=== PATIENT | male | born 1950 | race Caucasian/White ===

== ENCOUNTER 2018-07-28 21:12 | Emergency (ER) | payer OTHER ==
[2018-07-28 22:15] LABS: CHLORIDE,CL 104 mEq/L (98-106); SODIUM,NA 140 mEq/L (136-145)
--- NOTE | 2018-07-28 22:48 | EDM.PDOC ---
ED HPI GENERAL MEDICAL PROBLEM - General Chief Complaint: General Stated Complaint: elevated blood pressure; anxiety Time Seen by Provider: 07/28/18 21:55 Source of Information: Reports: Patient History Limitations: Reports: No Limitations - History of Present Illness INITIAL COMMENTS - FREE TEXT/NARRATIVE: Richar is a 67 yo male who presents to the ED this evening with concerns of chest discomfort. He admits the discomfort has subsided now. At onset of the chest discomfort he had been sitting in his chair. States since he got up and moved around it seemed to help. States he was in the and after taking a lot of CPR classes he felt if it is his heart he better have it checked out. He has been having a lot of chronic problems and doctoring with the [facility] in regards to agent orange. He states for the last week or so he had quit taking his blood pressure medication d/t feeling dizzy. He admits to dizziness off and on over the years but hasn't had it in quite some time. He was reading the common side effects to the Losartan and read that it could cause dizziness so stopped taking it on Friday. He admits the dizziness had subsided. He states he is really sensitive to medications and had to stop Lisinopril a few years ago and then was started on the Losartan. Denies any radiating pain into his arm or neck. States he has had extensive cardiac work up in the past and the welding machine operator ultrasonic at the [facility] has done two Cardiolite stress tests on him and everything has always came back negative. He is a known diabetic and admits he has been working hard to keeping his numbers under control. He states his A1c has been around the high 6 range. Treatments DATABASE SPECIALIST: Reports: Aspirin Chest Pain Score (Numeric/FACES): 2 - Related Data Allergies Allergy/AdvReac Type Severity Reaction Status Date / Time lisinopril Allergy Swelling Verified 07/28/18 21:36 creosote Allergy Swelling Uncoded 07/28/18 21:36 Home Meds: Home Meds Cholecalciferol (Vitamin D3) [Vitamin D3] 1,000 unit PO DAILY 07/28/18 [History] Furosemide [Lasix] 20 mg PO DAILY 07/28/18 [History] Losartan [Cozaar] 75 mg PO DAILY 07/28/18 [History] Magnesium Oxide [Magnesium] 400 mg PO DAILY 07/28/18 [History] Phentermine/Topiramate [Qsymia 7.5 mg-46 mg Capsule] 1 each PO DAILY 07/28/18 [ History] metFORMIN HCl [Metformin HCl] 1,000 mg PO DAILY 07/28/18 [History] Past Medical History HEENT History: Reports: Allergic Rhinitis. Denies: Cataract, Glaucoma, Macular Degeneration, Retinal Detachment Cardiovascular History: Reports: Hypertension. Denies: Afib, Aneurysm, Arrhythmia, Automatic Implantable Cardioverter Defibrillators, Blood Clots/VTE/ DVT, CAD, Cardiomyopathy, Congenital Septal Defect, Heart Failure, Heart Murmur , Heart Valve Replacement, High Cholesterol, NC, Pulmonary Hypertension, SOB on Exertion Respiratory History: Denies: Asthma, COPD, Interstitial Lung Disease, Intubation , Difficult, Pneumonia, Recurrent, Pulmonary Fibrosis, SOB Gastrointestinal History: Reports: Hemorrhoids. Denies: Bowel Obstruction, Diverticulosis, GI Bleed, Pancreatitis Genitourinary History: Reports: None Neurological History: Reports: None Psychiatric History: Reports: None Oncologic (Cancer) History: Reports: Basal Cell Carcinoma - Infectious Disease History Infectious Disease History: Reports: None - Past Surgical History HEENT Surgical History: Reports: Tonsillectomy Cardiovascular Surgical History: Reports: None Respiratory Surgical History: Reports: None GI Surgical History: Reports: Appendectomy, Cholecystectomy, Hernia Repair/Other Male Surgical History: Reports: None Musculoskeletal Surgical History: Reports: Knee Replacement (bilateral) Dermatological Surgical History: Reports: Skin Biopsy, Other (See Below) (basal cell carcinoma removed X 4) Social & Family History - Family History Oncologic: Reports: Breast, Leukemia, Pancreatic, Skin. Denies: Bladder, Bone, Brain, Colon, Prostate, Thyroid - Tobacco Use Smoking Status *Q: Former Smoker Tobacco Use Within Last Twelve Months: No - Alcohol Use Alcohol Use History: No Alcohol Use in Last Twelve Months: No - Recreational Drug Use Recreational Drug Use: No Drug Use in Last 12 Months: No - Living Situation & Occupation Living situation: Reports: , with Significant Other ED ROS GENERAL - Review of Systems Review Of Systems: See Below Constitutional: Denies: Fever, Chills, Weakness, Diaphoresis, Decreased Appetite HEENT: Denies: Sinus Problem, Vision Change Respiratory: Denies: Shortness of Breath Cardiovascular: Reports: Chest Pain, Edema, Lightheadedness. Denies: Palpitations GI/Abdominal: Reports: Nausea. Denies: Abdominal Pain, Bloody Stool, Constipation, Diarrhea, Vomiting Musculoskeletal: Denies: Neck Pain, Shoulder Pain, Arm Pain Neurological: Denies: Confusion, Numbness, Difficulty Walking, Weakness Psychiatric: Reports: No Symptoms ED EXAM, GENERAL - Physical Exam Exam: See Below Exam Limited By: No Limitations General Appearance: Alert, No Apparent Distress Eye Exam: Bilateral Eye: Normal Inspection Ears: Normal External Exam, Normal Canal, Hearing Grossly Normal, Normal TMs Nose: Normal Inspection, Normal Mucosa, No Blood Throat/Mouth: Normal Inspection, Normal Lips, Normal Teeth, Normal Gums, Normal Oropharynx, Normal Voice, No Airway Compromise Head: Atraumatic, Normocephalic Neck: Normal Inspection, Supple Respiratory/Chest: No Respiratory Distress, Lungs Clear, Normal Breath Sounds, No Accessory Muscle Use Cardiovascular: Regular Rate, Rhythm, No Murmur Peripheral Pulses: 3+: Posterior Tibial (L), Posterior Tibial (R), Dorsalis Pedis (L), Dorsalis Pedis (R) GI/Abdominal: Normal Bowel Sounds, Soft, Non-Tender, No Organomegaly, No Distention Extremities: Pedal Edema Neurological: Alert, Oriented, Normal Cognition, Normal Gait, No Motor/Sensory Deficits Psychiatric: Normal Affect, Normal Mood Skin Exam: Warm, Dry, Intact, Normal Color, No Rash EKG INTERPRETATION EKG Date: 07/28/18 Rhythm: NSR Rate (Beats/Min): 91 [place]: LAD-Left [place] Deviation QRS: Normal ST-T: Normal Comparison: NA - No Prior EKG Course - Vital Signs Last Recorded V/S: Last Vital Signs Temp 99.0 F 07/28/18 21:39 Pulse 79 07/28/18 22:05 Resp 16 07/28/18 21:39 BP 160/80 H 07/28/18 22:05 Pulse Ox 95 07/28/18 21:39 - Orders/Labs/Meds Orders: Active Orders 24 hr Category Date Time Status EKG Documentation Completion [RC] STAT Care 07/28/18 21:37 Active Chest 2V [CR] Stat Exams 07/28/18 21:37 Taken Labs: Laboratory Tests 07/28/18 07/28/18 07/28/18 Range/Units 21:37 21:37 21:37 WBC 11.3 H (5.0-10.0) 10^3/uL RBC 5.13 (4.50-6.00) 10^6/uL Hgb 15.6 (14.0-18.0) g/dL Hct 44.0 (40.0-54.0) % MCV 85.8 (82.0-94.0) fL MCH 30.4 (27.0-32.0) pg MCHC 35.5 (33.0-38.0) g/dL RDW Coeff of Derek 14.5 (11.0-15.0) % Plt Count 296 (150-400) 10^3/uL Neut % (Auto) 74.6 (35-85) % Lymph % (Auto) 12.7 (10-55) % [place] % (Auto) 8.9 (0-16) % Eos % (Auto) 3.4 (0-5) % Baso % (Auto) 0.4 (0-3) % Neut # (Auto) 8.42 H (1.80-7.00) 10^3/uL Lymph # (Auto) 1.43 (1.00-4.80) 10^3/uL [place] # (Auto) 1.00 H (0.00-0.80) 10^3/uL Eos # (Auto) 0.38 (0.00-0.45) 10^3/uL Baso # (Auto) 0.05 10^3/uL PT 10.2 (9.7-12.3) SEC INR 0.98 (0.92-1.18) APTT 26.9 (23.2-32.3) SEC Sodium 140 (136-145) mEq/L Potassium 4.3 (3.5-5.0) mEq/L Chloride 104 (98-106) mEq/L Carbon Dioxide 28 (21-32) mmol/L BUN 12 (7-18) mg/dL Creatinine 1.1 (0.7-1.3) mg/dL Est Cr Clr Drug Dosing 73.69 mL/min Estimated GFR (MDRD) > 60 (>=60) mL/min Glucose 144 H (75-99) mg/dL Calcium 9.0 (8.4-10.1) mg/dL Lactate Dehydrogenase 158 (100-190) U/L Creatine Kinase 94 (35-232) U/L Troponin I < 0.017 (0.00-0.06) ng/mL Meds: Medications Discontinued Medications Generic Name Dose Route Start Last Admin Trade Name Marquis PRN Reason Stop Dose Admin Meclizine HCl 25 mg 07/28/18 23:27 07/28/18 23:30 Antivert PO 07/28/18 23:28 25 mg ONETIME ONE Administration Departure - Departure Time of Disposition: 23:04 Disposition: Home, Self-Care 01 Condition: Good Clinical Impression: Atypical chest pain, Vertigo Hypertension Qualifiers: Hypertension type: essential hypertension Qualified Code(s): I10 - Essential ( primary) hypertension - Discharge Information Instructions: Nonspecific Chest Pain, [id number], Vertigo, [id number], Dizziness, [id number] Forms: ED Department Discharge Additional Instructions: 1) Rest tonight, entire cardiac work up was normal this evening. 2) Recommend following up with Dr. Bhakta tomorrow for recheck and to discuss blood pressure medication and dizziness. 3) Monitor for any further signs and symptoms, if any concerns at all, return to ED for reevaluation. 4) May call nurses station with any concerns, [phone] - Problem List & Annotations (1) Atypical chest pain SNOMED Code(s): 303150371 Code(s): R07.89 - OTHER CHEST PAIN Status: Acute (2) Hypertension SNOMED Code(s): 59392042 Code(s): I10 - ESSENTIAL (PRIMARY) HYPERTENSION Status: Acute Qualifiers: Hypertension type: essential hypertension Qualified Code(s): I10 - Essential (primary) hypertension (3) Vertigo SNOMED Code(s): 006087904 Code(s): R42 - DIZZINESS AND GIDDINESS Status: Acute - My Orders Last 24 Hours: My Active Orders 07/28/18 21:37 EKG Documentation Completion [RC] STAT Chest 2V [CR] Stat - Assessment/Plan Last 24 Hours: My Active Orders 07/28/18 21:37 EKG Documentation Completion [RC] STAT Chest 2V [CR] Stat Plan: Cardiac work up completed. EKG showed Normal Sinus Rhythm. Cardiac enzymes were negative. All laboratory work is unremarkable. We did give 25mg of Meclizine for vertigo, which did seem to help. Will discharge home at this time as patient is asymptomatic. Patient has been doing well during his entire time in the ED.
[2018-07-28] MEDS ORDERED: Meclizine 12.5 MG Tab PO ONE (23:27)
== END 2018-07-29 00:05 | disposition home or self-care (01) ==
LOC: CC.ED 21:12
DX: R07.89 Other chest pain (principal); R42 Dizziness and giddiness; I10 Essential (primary) hypertension; Z79.84 Long term (current) use of oral hypoglycemic drugs; Z87.891 Personal history of nicotine dependence; Z98.890 Other specified postprocedural states; Z88.8 Allergy status to other drugs, medicaments and biological substances
CPT/HCPCS: 36415; 71046; 80048; 82550; 83615; 84484; 85025; 85610; 85730; 93005; 99285; A9270